=== PATIENT | male | born 1960 | race Caucasian/White ===

== ENCOUNTER 2025-08-12 10:42 | Inpatient (IN) | payer MEDICARE, OTHER ==
[~2025-08-12] VITALS: Ht 185.4 cm; Wt 63.5 kg
[2025-08-13 10:01] VITALS: BP 134/90; TEMP 97.7
[2025-08-13 10:35] VITALS: BP 134/90; TEMP 97.7
[2025-08-13 15:30] VITALS: BP 119/74; TEMP 98.1; O2SAT 98
[2025-08-13] MEDS ORDERED: ERGO500040 PO (16:20)
[2025-08-13] MEDS ORDERED: ACET325T53 PO (16:21)
[2025-08-13] MEDS ORDERED: ALEN70TA80 PO (16:21)
[2025-08-13] MEDS ORDERED: CLOZ200T PO (16:22)
[2025-08-13] MEDS ORDERED: ASPI-1169 PO (16:22)
[2025-08-13] MEDS ORDERED: DIVA250T47 PO (16:22)
[2025-08-13] MEDS ORDERED: GEMF600T90 PO (16:23)
[2025-08-13] MEDS ORDERED: LEVO125T8 PO (16:24)
[2025-08-13] MEDS ORDERED: DIVA250T4 PO (16:26)
[2025-08-13] MEDS ORDERED: MAG355OR18 PO (16:28)
[2025-08-13] MEDS ORDERED: MAGN400O6 PO (16:29)
[2025-08-13] MEDS ORDERED: ONDA4SYR IV (16:31)
[2025-08-13] MEDS ORDERED: VALS40TA12 PO (16:32)
[2025-08-13] MEDS ORDERED: SOD62.5V IV (16:32)
[2025-08-13] MEDS ORDERED: Z-GUARD TOP (16:33)
[2025-08-13] MEDS ORDERED: ZOLP5TAB8 PO (16:34)
[2025-08-13] MEDS ORDERED: ZOLPIDEM 5 MG TABLET PO PRN (18:45)
[2025-08-13] MEDS: MAGNESIUM HYDROXIDE 30 ML LIQUID UDC PO ONE (19:34)
[2025-08-13] MEDS ORDERED: CLOZAPINE PO SCH (21:00)
[2025-08-13] MEDS: DIVALPROEX 250 MG TABLET.DR PO SCH (21:51)
[2025-08-13] MEDS: CLOZAPINE 100 MG TABLET PO SCH (21:51)
[2025-08-13 21:57] VITALS: BP 125/74; TEMP 98.8; O2SAT 100
[2025-08-14] MEDS: LEVOTHYROXINE SODIUM 125 MCG TABLET PO SCH (06:43)
[2025-08-14 06:52] VITALS: BP 128/86; TEMP 97.7; O2SAT 98
[2025-08-14 08:00] VITALS: BP 125/78; TEMP 97.7; O2SAT 100
[2025-08-14 08:00] LABS: PLATELET COUNT (AUTO) 187 K/uL (152-348); RED BLOOD CELL COUNT(AUTO) 3.27 MIL/uL (4.06-5.63); RED CELL DISTRIBUTION WIDTH 13.4 % (12.1-16.2); WHITE BLOOD COUNT (AUTO) 5.9 K/uL (3.6-10.2)
[2025-08-14 08:15] LABS: CREATININE 0.6 mg/dL (0.6-1.3); SODIUM SERUM 144 mmol/L (136-145); UREA NITROGEN, BLOOD 14 mg/dL (7-18); VALPROIC ACID 16 ug/mL (50-100)
[2025-08-14] MEDS: MIRALAX 17 GM POWD.PACK PO SCH (08:46)
[2025-08-14] MEDS: DOCUSATE SODIUM 100 MG CAPSULE PO SCH (08:47)
[2025-08-14] MEDS: ASPIRIN 81 MG TAB.CHEW PO SCH (08:47)
[2025-08-14] MEDS ORDERED: ALENDRONATE SODIUM 70 MG TABLET PO SCH (09:00)
[2025-08-14] MEDS ORDERED: ERGOCALCIFEROL 50,000 UNIT CAPSULE PO SCH (09:00)
[2025-08-14] MEDS: VALSARTAN 40 MG TABLET PO SCH (11:51)
[2025-08-14] MEDS: GEMFIBROZIL 600 MG TABLET PO SCH (11:51)
[2025-08-14 16:54] VITALS: BP 124/76; TEMP 98.1; O2SAT 98
[2025-08-14 21:54] VITALS: BP 118/76; TEMP 97.9; O2SAT 100
[2025-08-15] MEDS: LEVOTHYROXINE SODIUM 125 MCG TABLET PO SCH (06:37)
[2025-08-15 07:19] VITALS: BP 129/86; TEMP 98.5; O2SAT 100
[2025-08-15 07:49] VITALS: BP 118/82; TEMP 97.9; O2SAT 97
[2025-08-15 14:50] LABS: FREE PSA 0.32 ng/mL (0.00-45)
[2025-08-15 16:07] VITALS: BP 144/80; TEMP 97.4; O2SAT 98
[2025-08-15 20:37] VITALS: BP 111/75; TEMP 98.6; O2SAT 98
[2025-08-16 06:42] VITALS: BP 110/66; TEMP 97.7; O2SAT 98
[2025-08-16 08:00] VITALS: BP 122/78; TEMP 97.6; O2SAT 98
[2025-08-16 10:20] LABS: *OCCULT BLOOD STOOL NEGATIVE (NEGATIVE)
[2025-08-16 16:48] VITALS: BP 118/90; TEMP 98.2; O2SAT 95
[2025-08-16 20:00] VITALS: BP 106/56; TEMP 97.9; O2SAT 99
[2025-08-17 05:54] VITALS: BP 127/80; TEMP 97.4; O2SAT 100
[2025-08-17 07:35] VITALS: BP 114/68; TEMP 97.4; O2SAT 97
[2025-08-17 16:32] VITALS: BP 111/73; TEMP 98; O2SAT 98
[2025-08-17 20:00] VITALS: BP 121/74; TEMP 98; O2SAT 97
[2025-08-18 06:37] VITALS: BP 116/71; TEMP 97.8; O2SAT 96
[2025-08-18 08:00] VITALS: BP 126/79; TEMP 97.2; O2SAT 98
[2025-08-18 16:00] VITALS: BP 100/70; TEMP 97.6; O2SAT 97
[2025-08-18 19:30] VITALS: BP 100/58; TEMP 97.5; O2SAT 99
[2025-08-19 05:42] VITALS: BP 93/55; TEMP 97.2; O2SAT 99
[2025-08-19] MEDS: ERGOCALCIFEROL 50,000 UNIT CAPSULE PO SCH (08:20)
[2025-08-19 08:29] VITALS: BP 121/78; TEMP 97.2; O2SAT 98
[2025-08-19] MEDS: ALENDRONATE SODIUM 70 MG TABLET PO SCH (09:02)
[2025-08-19 16:10] VITALS: BP 96/62; TEMP 97.9; O2SAT 99
[2025-08-19 20:50] VITALS: BP 107/68; TEMP 97.5; O2SAT 98
[2025-08-20 06:29] VITALS: BP 136/80; TEMP 97.4; O2SAT 98
[2025-08-20 07:53] VITALS: BP 118/80; TEMP 97.7; O2SAT 98
[2025-08-20] MEDS: MAGNESIUM HYDROXIDE 30 ML LIQUID UDC PO PRN (10:40)
[2025-08-20 16:17] VITALS: BP 118/75; TEMP 97.2; O2SAT 98
[2025-08-20 20:09] VITALS: BP 125/75; TEMP 98; O2SAT 97
[2025-08-21 05:17] VITALS: BP 123/78; TEMP 97.3; O2SAT 98
[2025-08-21 08:00] VITALS: BP 118/75; TEMP 97.9; O2SAT 97
[2025-08-21 17:00] VITALS: BP 119/81; TEMP 98.1; O2SAT 100
[2025-08-21 21:20] VITALS: BP 116/78; TEMP 98.2; O2SAT 99
[2025-08-22 07:08] VITALS: BP 124/80; TEMP 97.6; O2SAT 98
[2025-08-22 08:00] VITALS: BP 136/79; TEMP 98; O2SAT 100
[2025-08-22 16:50] VITALS: BP 134/83; TEMP 98.1; O2SAT 100
[2025-08-22 22:37] VITALS: BP 116/70; TEMP 98.6; O2SAT 99
[2025-08-23 06:56] VITALS: BP 126/81; TEMP 98.6; O2SAT 99
[2025-08-23 08:00] VITALS: BP 128/83; TEMP 97.6; O2SAT 100
[2025-08-23 16:00] VITALS: BP 134/87; TEMP 97.7; O2SAT 97
[2025-08-23 20:42] VITALS: BP 141/81; TEMP 97.7; O2SAT 99
[2025-08-24 06:42] VITALS: BP 140/89; TEMP 97.6; O2SAT 99
[2025-08-24 07:45] VITALS: BP 140/89; TEMP 98; O2SAT 98
[2025-08-24 16:00] VITALS: BP 140/89; TEMP 98; O2SAT 98
== END 2025-08-24 16:20 | disposition home health service (06) | DRG 948 ==
PROVIDERS: ADMIT Physical Medicine & Rehabilitation Pain Medicine; ATTEND Physical Medicine & Rehabilitation Pain Medicine
DX: R53.1 Weakness (principal); D63.8 Anemia in other chronic diseases classified elsewhere; R53.81 Other malaise; E03.9 Hypothyroidism, unspecified; F20.9 Schizophrenia, unspecified; K59.00 Constipation, unspecified; Z91.81 History of falling; R29.6 Repeated falls; S00.11XD Contusion of right eyelid and periocular area, subsequent encounter; W19.XXXD Unspecified fall, subsequent encounter; R42 Dizziness and giddiness; F19.21 Other psychoactive substance dependence, in remission; F39 Unspecified mood [affective] disorder; Z79.899 Other long term (current) drug therapy; Z87.891 Personal history of nicotine dependence; R26.89 Other abnormalities of gait and mobility
CPT/HCPCS: 36415; 80164; 83735; 84100; 84153; 84443; 85025; 97535-GO-CO; J3490; J8499